=== PATIENT | male | born 1940 | race Caucasian/White ===

== ENCOUNTER 2016-11-10 23:43 | Inpatient (IN) | payer MEDICARE, BC ==
[~2016-11-10] VITALS: Ht 180.3 cm; Wt 106.0 kg
--- NOTE | ~2016-11-10 | EKG ---
PATIENT: SWETA LOFTON UNIT #: [id number] Ventricular Rate: 81 BPM Atrial Rate: 81 BPM P-R Interval: 150 ms QRS Duration: 76 ms Q-T Interval: 360 ms QTC Calculation(Bezet): 418 ms P [place]: 48 degrees Calculated R [place]: -20 degrees Calculated T [place]: -14 degrees Diagnosis Line: Normal sinus rhythm Diagnosis Line: T wave abnormality, consider anterior ischemia Diagnosis Line: When compared with ECG of 12-NOV-2016 10:59, Diagnosis Line: t wave abnormality is less pronounced Diagnosis Line: QT has shortened Diagnosis Line: Confirmed by RICKY LUI MD ([id number]) on 11/14/2016 Diagnosis Line: 7:54:26 PM INTERPRETING MD: HU PINON
--- NOTE | ~2016-11-10 | US84 ---
[id number] [facility] [address] [place], [place] [address] [id number] I MR#: [id number] Acc #: [id number] NAME: SWETA LOFTON : 1940 SEX: M STUDY DATE/TIME: 11/12/2016 15:45 UNIT: C5B ROOM: [facility] STUDY DESCRIPTION: US LE Veins Complete Hugh Stdy Attending Physician: Yung Kearns M.D. Ordering Physician: Ashvin Rodriges M.D. Primary Care Physician: Primary Care Physician No MEDICAL IMAGING REPORT This report is preliminary unless electronic signature is present EXAM Bilateral lower extremity venous ultrasound HISTORY Bilateral lower extremity pain for 2 days. Pulmonary emboli. TECHNIQUE Venous ultrasound examination of both lower extremities was performed using grayscale, spectral Doppler and color flow Doppler imaging. FINDINGS The examination is negative. There is no evidence of deep venous thrombus from the groin to the lower calf bilaterally. Visualized greater saphenous veins are also patent. IMPRESSION Negative examination. No evidence of lower extremity deep venous thrombosis. Dictated by... Lalo Dill M.D. THIS IS AN ELECTRONICALLY VERIFIED REPORT Lalo Dill M.D. at 11/13/2016 11:30 PM DFL/rnr TD: 11/13/2016 01:06 JOB #: [id number] MEDICAL IMAGING REPORT Page 1 of 1 COPY
--- NOTE | ~2016-11-10 | CO ---
Unit #: [id number] #: [id number] Patient: SWETA LOFTON [id number] [address] [address] [id number] I MR#: [id number] NAME: SWETA LOFTON ROOM: CICCU3 Age: 76 Sex: M Admission Date: 11/11/2016 : 1940 Attending Physician: Yung Kearns Primary Care Physician: Theresa Primary Care Physician Consultation Date: 11/11/2016 CONSULTATION REPORT REASON FOR CONSULT ICU management. CHIEF COMPLAINT Shortness of breath. HISTORY OF PRESENT ILLNESS This is a 76-year-old male with no past medical history, but he has not seen a doctor in so many years and takes only baby aspirin at home. The patient presented to the emergency room with shortness of breath and chest discomfort with no radiation. His chest pain was worse on lying flat and on inspiration. The patient stated that he had hernia repair surgery at [facility] on October 25, 2016, and since then, he became short of breath and with some chest discomfort. 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 REVIEW OF SYSTEMS Twelve-point review of systems was obtained and was negative except for what was mentioned in the HPI. PAST MEDICAL HISTORY Acute pulmonary embolus. PAST SURGICAL HISTORY Hernia repair. SOCIAL HISTORY The patient does not smoke. No history of alcohol or drug abuse. ALLERGIES No known drug allergies. FAMILY HISTORY Noncontributory. HOME MEDICATIONS Baby aspirin. PHYSICAL EXAMINATION GENERAL: The patient is not in acute distress. Unit #: [id number] #: [id number] Patient: SWETA LOFTON VITAL SIGNS: Temperature 98.1, respiratory rate 18, O2 saturation 98% on 2 liters nasal cannula. HEENT: Atraumatic, normocephalic. PERRLA, EOMI. NECK: Supple. No JVD. No lymphadenopathy. CHEST: Clear to auscultation bilaterally. HEART: S1, S2. No murmur, gallops or rubs. ABDOMEN: Soft, nontender. Bowel sounds positive. No hepatosplenomegaly. EXTREMITIES: Trace edema but no cyanosis. SKIN: No rashes. CLEANING STAFF SUPERVISOR: Awake, alert, oriented x3. No focal motor/sensory deficits. LABS AND OTHER TESTS LABS: Creatinine 1.4, sodium 139, calcium 9.2. White blood count 10.3, hemoglobin 15.5. IMAGING TESTS: CT angiogram is consistent with extensive bilateral pulmonary embolus. ASSESSMENT 1. Submassive acute pulmonary embolus. 2. Right heart strain. 3. Acute kidney injury. PLAN 1. Patient will be taken to the canvas shop laborer for direct thrombolytic treatment via EKOS. 2. Heparin drip and then he will be transitioned to oral anticoagulation. 3. Case management to foy the new generation of oral anticoagulation. 4. Bedrest for the next 12 hours. 5. Pain management. 6. Gentle IV hydration. Dictated by... Juancarlos Zaman TD: 11/11/2016 15:06 JOB #: [id number] CONSULTATION REPORT Page 1 of 1 X JEISON HAIR MD X CONSULTATION REPORT
--- NOTE | ~2016-11-10 | CT16 ---
[facility] A Service of [facility] RADIOLOGY TEXT RESULTS PATIENT: SWETA LOFTON LOCATION: CIC3 CICCU3-17 : 41 UNIT #: [id number] AGE: [address]: FANI GRACIA V SEX: M ORDER DR: [id number] [facility] [address] [place], [place] [address] [id number] I MR#: [id number] Acc #: [id number] NAME: SWETA LOFTON : 1940 SEX: M STUDY DATE/TIME: 11/11/2016 2:24 UNIT: [facility] ROOM: 297[address] STUDY DESCRIPTION: CT Angio Chest for PE Attending Physician: Fani Gracia Ordering Physician: Quinton Joe D.O. Primary Care Physician: No Primary Care Physician MEDICAL IMAGING REPORT This report is preliminary unless electronic signature is present EXAM CTA chest PE protocol INDICATION Shortness of air and tachycardia for the past 3 days. PROCEDURE Contrast-enhanced CTA of the chest attention on opacification of the pulmonary arteries. Coronal 3D MIP sagittal reformatted images were reconstructed and submitted. This CT exam was performed with one or more of the following radiation dose reduction techniques: Automatic exposure control, adjustment of mA and/or kV according to patient size, and iterative reconstruction. COMPARISON None. FINDINGS Extensive bilateral acute pulmonary embolus. There is no saddle component. There is flattening of the intraventricular septum, suggesting some right heart strain. Ascending thoracic aorta measures up to 4.3 cm. No evidence for dissection, though the aortic is not well opacified on this study. No adenopathy. No acute findings in the included upper abdomen. There is a linear but somewhat wedge-shaped opacity in the anterior left upper lobe. There is atelectasis in both lung bases. No aggressive appearing bone lesion. IMPRESSION 1. Extensive bilateral acute pulmonary embolus with evidence for right heart strain. There is no saddle component. 2. 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 3. Linear but somewhat wedge-shaped opacity in anterior left upper lobe, probably atelectasis. Hemorrhage is considered much less likely. [facility] A Service of [facility] RADIOLOGY TEXT RESULTS PATIENT: SWETA LOFTON LOCATION: [facility]-17 : 41 UNIT #: [id number] AGE: [address]: BASILFANI V SEX: M ORDER DR: Dictated by... Yaya Guan M.D. THIS IS AN ELECTRONICALLY VERIFIED REPORT Yaya Guan M.D. at 11/11/2016 10:01 PM ENMANUEL/rodolfo TD: 11/11/2016 10:10 JOB #: [id number] MEDICAL IMAGING REPORT Page 1 of 1 COPY
--- NOTE | ~2016-11-10 | EKG ---
PATIENT: SWETA LOFTON UNIT #: [id number] Ventricular Rate: 112 BPM Atrial Rate: 112 BPM P-R Interval: 136 ms QRS Duration: 86 ms Q-T Interval: 320 ms QTC Calculation(Bezet): 436 ms P [place]: 27 degrees Calculated R [place]: -13 degrees Calculated T [place]: 8 degrees Diagnosis Line: Sinus tachycardia Diagnosis Line: Nonspecific ST and T wave abnormality Diagnosis Line: Abnormal ECG Diagnosis Line: No previous ECGs available Diagnosis Line: Confirmed by JERZY AMIN MD ([id number]) on Diagnosis Line: 11/11/2016 12:21:32 PM INTERPRETING MD: WING
--- NOTE | ~2016-11-10 | CR72 ---
[facility] A Service of [facility] RADIOLOGY TEXT RESULTS PATIENT: SWETA LOFTON LOCATION: CIC3 CIC : 41 UNIT #: [id number] AGE: [address]: FANI KEARNS V SEX: M ORDER DR: [id number] [facility] [address] [place], [place] [address] [id number] I MR#: [id number] Acc #: [id number] NAME: SWETA LOFTON : 1940 SEX: M STUDY DATE/TIME: 11/11/2016 0:09 UNIT: CEDOF ROOM: 70701 STUDY DESCRIPTION: CR Chest Single View Portable Attending Physician: Fani Kearns Ordering Physician: Ed Doctor [id number] [facility] Primary Care Physician: Primary Care Physician No MEDICAL IMAGING REPORT This report is preliminary unless electronic signature is present EXAM Portable chest INDICATION Shortness of air and cough for the past 2 days. PROCEDURE Frontal view chest. COMPARISON None FINDINGS Mild cardiomegaly. Nodular density in the left mid lung measuring approximately 2.8 cm. Otherwise the lungs are predominately clear with no pleural fluid or pneumothorax. IMPRESSION 1. Cardiomegaly. 2. Nonspecific nodular density left mid lung. This would be better evaluated with chest CT. Dictated by... Yaya Guan M.D. THIS IS AN ELECTRONICALLY VERIFIED REPORT Yaya Guan M.D. at 11/11/2016 10:02 PM ENMANUEL/jacinda TD: 11/11/2016 09:42 JOB #: [id number] MEDICAL IMAGING REPORT [facility] A Service of [facility] RADIOLOGY TEXT RESULTS PATIENT: SWETA LOFTON LOCATION: CIC CIC : 41 UNIT #: [id number] AGE: [address]: FANI KEARNS V SEX: M ORDER DR: Page 1 of 1 COPY
--- NOTE | ~2016-11-10 | DS ---
Unit #: [id number] #: [id number] Patient: SWETA LOFTON [id number] [address] [address] [id number] I MR#: [id number] NAME: SWETA LOFTON ROOM: 550 Age: 76 Sex: M Admission Date: 11/11/2016 : 1940 Discharge Date: 11/14/2016 Attending Physician: Yung Kearns M.D. Primary Care Physician: No Primary Care Physician DISCHARGE SUMMARY PERTINENT HISTORY AND HOSPITAL COURSE The patient is a 76-year-old man with no prior medical history other than a left inguinal hernia repair done laparoscopically on 10/25/2016. After he went home, he mostly sat up in the recliner, did not ambulate much and subsequently about a month later he developed symptoms of shortness of breath. On arrival to the emergency room, he was noted to be hypoxic. CAT scan, CT angiogram of the chest demonstrated extensive bilateral pulmonary embolism with evidence of right heart strain. The patient underwent EKOS and then continued on anticoagulation with Eliquis. At discharge, the patient is currently breathing comfortably, no respiratory distress. Lungs clear to auscultation bilaterally. Heart sounds regular rate and rhythm, no murmur. CONSULTATIONS Cardiology consultation. PROCEDURES EKOS. DISCHARGE MEDICATIONS 1. Eliquis 5 mg, take 10 mg p.o. twice daily for seven days. Then, on 11/19/2016, take 5 mg p.o. twice daily. 2. Aspirin 81 mg p.o. once daily. DISCHARGE INSTRUCTIONS The patient is to follow up with primary care physician. Follow up with cardiology consultation as outpatient. Dictated by... Juancarlos Hayes/shanika TD: 11/14/2016 12:15 JOB #: [id number] Unit #: [id number] #: [id number] Patient: SWETA LOFTON DISCHARGE SUMMARY Page 1 of 1 X X DISCHARGE SUMMARY
--- NOTE | ~2016-11-10 | HP ---
Unit #: [id number] #: [id number] Patient: SWETA LOFTON [id number] [facility]. [place], [place] [address] [id number] I MR#: [id number] NAME: SWETA LOFTON ROOM: 95298 Age: 76 Sex: M Admission Date: 11/10/2016 : 1940 Attending Physician: Yung Kearns Primary Care Physician: No Primary Care Physician HISTORY AND PHYSICAL HISTORY OF PRESENT ILLNESS The patient is a 76-year-old man with recent history of hernia surgery about a month ago. Following surgery, the patient has not been active. States he has primarily been sitting in a chair. The patient does not have a primary care physician. He has not seen a physician for many years. He is not on any medications. He presents to the emergency room with symptoms of sudden onset of shortness of breath and chest discomfort, worse when lying down, described as sharp, moderate in intensity, continuous in timing. SOCIAL HISTORY Does not smoke. ALLERGIES No known drug allergies. FAMILY HISTORY Noncontributory. MEDICATIONS Does not take any medications. PHYSICAL EXAMINATION VITALS: Temperature 97, heart rate 93, respirations 27, O2 sat 95% on 2 liters nasal cannula, blood pressure 124/89. GENERAL: Elderly man, looks fatigued. HEENT: Normocephalic, atraumatic. NECK: Supple. No palpable masses. CVS: S1, S2. Regular rate and rhythm. LUNGS: Bilateral air entry. No wheeze. ABDOMEN: Soft. Bowel sounds positive. EXTREMITIES: No edema. No cyanosis. FIELD MARKETING REPRESENTATIVE: Awake, alert, oriented. No acute focal deficits. DIAGNOSTIC STUDIES IMAGING: CAT scan demonstrates bilateral pulmonary embolism and right heart strain. ASSESSMENT AND PLAN Bilateral pulmonary embolism: Plan is to order IV anticoagulation with heparin drip along with plan for EKOS. Supplemental oxygen to maintain O2 sats above 90%. Unit #: [id number] #: [id number] Patient: SWETA LOFTON Dictated by Nino Florentino M.D. RAMIN/ayush TD: 11/11/2016 10:59 JOB #: [id number] HISTORY AND PHYSICAL Page 1 of 1 X Nino Florentino MD HISTORY AND PHYSICAL
--- NOTE | ~2016-11-10 | EKG ---
PATIENT: SWETA LOFTON UNIT #: [id number] Ventricular Rate: 84 BPM Atrial Rate: 84 BPM P-R Interval: 142 ms QRS Duration: 90 ms Q-T Interval: 440 ms QTC Calculation(Bezet): 519 ms P [place]: 42 degrees Calculated R [place]: 8 degrees Calculated T [place]: 17 degrees Diagnosis Line: Normal sinus rhythm Diagnosis Line: T wave abnormality, consider anterior ischemia Diagnosis Line: Prolonged QT Diagnosis Line: Abnormal ECG Diagnosis Line: When compared with ECG of 10-NOV-2016 23:50, Diagnosis Line: ST no longer depressed in Lateral leads Diagnosis Line: T wave inversion now evident in Anterior leads Diagnosis Line: Confirmed by RICKY LUI MD ([id number]) on 11/12/2016 Diagnosis Line: 7:26:44 PM INTERPRETING MD: HU PINON
--- NOTE | ~2016-11-10 | CO ---
Unit #: [id number] #: [id number] Patient: SWETA LOFTON [id number] [address] [address] [id number] I MR#: [id number] NAME: SWETA LOFTON ROOM: CICCU3 Age: 76 Sex: M Admission Date: 11/11/2016 : 1940 Attending Physician: Yung Kearns Primary Care Physician: Primary Care Physician No CONSULTATION REPORT REASON FOR CONSULTATION Pulmonary embolism. HISTORY OF PRESENT ILLNESS This is a 76-year-old white male, who was admitted with a complaint of shortness of breath. He had left inguinal hernia repair done laparoscopically at [facility] on 10/25/2016. After he went home he mostly sat up in a recliner. Three days ago, he developed shortness of breath at rest and on exertion. He had no chest pain. No cough or fever. His dyspnea worsened and prompt him to come to the emergency room for evaluation. CTA of the chest revealed extensive bilateral pulmonary embolism with evidence of right heart strain. From a cardiac standpoint, the patient has a history of hypertension. He denies any history of coronary artery disease, diabetes, CVA, or TIA. No hemoptysis, hematochezia, or melena. He was started on heparin in the emergency room. PAST MEDICAL HISTORY 1. Hypertension. 2. Nonsmoker. PAST SURGICAL HISTORY 1. Prior hernia repair. 2. Recent laparoscopic inguinal hernia repair on 10/25/2016. SOCIAL HISTORY The patient lives at home alone. He is usually reasonably active. He has never smoked. No illicit drug or alcohol use. FAMILY HISTORY Noncontributory. ALLERGIES No known drug allergies. HOME MEDICATIONS Not currently reconciled. PHYSICAL EXAMINATION VITAL SIGNS: Blood pressure 134/88, heart rate 88, temperature 97.7. BMI of 30. GENERAL: This is a very pleasant, obese 76-year-old white male, who is in no acute respiratory distress. Unit #: [id number] #: [id number] Patient: SWETA LOFTON NEUROLOGIC: He is awake, alert, and oriented. There are no focal weaknesses. NECK: Trachea is midline. No thyromegaly or lymphadenopathy. No jugular venous distention. HEART: S1, S2. Heart sounds are normal. No murmurs. No rubs or clicks. Regular rate and rhythm. LUNGS: Clear without rales, rhonchi, or wheezes. ABDOMEN: Soft and nontender with bowel sounds are present. EXTREMITIES: Without leg edema. SKIN: Warm and dry. There was a small 3 cm incision to the mid lower abdominal that is intact. DIAGNOSTIC STUDIES LABORATORY RESULTS: Glucose 137, BUN 26, creatinine 1.4, sodium 139, potassium 4.6. BNP 272. Troponin 0.09 x2. White count 10.3, hemoglobin 16.5, hematocrit 49.8, and platelet count is 210. IMAGING STUDIES: Chest x-ray shows nodular density in the mid left lung measuring 2.8 cm. Cardiomegaly. The nodular density is nonspecific. CTA of the chest reveals extensive bilateral acute pulmonary embolism with evidence of right heart strain. Aneurysmal dilatation of the thoracic up to 4.2 cm. Left anterior upper lobe with atelectasis. CARDIOVASCULAR STUDIES: EKG shows sinus tachycardia with a rate of 112 beats per minute with nonspecific ST-wave abnormality. IMPRESSION 1. Bilateral extensive pulmonary embolism. 2. Recent left inguinal hernia repair. 3. Incidental finding of the ascending thoracic aneurysmal dilatation up to 4.2 cm. 4. Elevated troponin secondary to pulmonary embolism. 5. Hypertension. PLAN 1. Cardiology was consulted for bilateral pulmonary embolism. I agree with heparin drip. 2. The patient has been advised to undergo directed thrombolytic therapy for PE by EKOS. Procedure risks and benefits have been explained to the patient and his son and they are agreeable. I will review risk factors if none, we will proceed. Thank you for allowing us to assist with this patient's care. Dictated by... Fanny DengRTeresa. for Juancarlos Handley/alex TD: 11/12/2016 07:50 JOB #: [id number] Unit #: [id number] #: [id number] Patient: SWETA LOFTON CONSULTATION REPORT Page 1 of 1 X Luis Alfredo Kaye APRN X CONSULTATION REPORT
[2016-11-11 00:49] LABS: POC - CKMB 5.7 ng/mL (0.0-7.9); POC - TROPONIN 0.09 ng/mL (<=0.05)
[2016-11-11 01:02] LABS: BASOPHIL% 0.2 % (0-2.5); EOSINOPHIL# 0.1 X10e3 (0-0.7); EOSINOPHIL% 0.9 % (0.0-7.0); HEMATOCRIT 49.8 % (38.0-50.0); HEMOGLOBIN 16.5 gm/dL (13.0-16.0); LYMPHOCYTE# 1.3 X10e3 (1.0-3.5); LYMPHOCYTE% 13.1 % (17.0-45.0); MEAN CELL VOLUME 90.2 FL (83-96); MEAN CORPUSCULAR HEMOGLOBIN 29.9 PG (28-34); MEAN CORPUSCULAR HGB CONC 33.2 g/dL (30-36); MONOCYTE# 1.1 X10e3 (0-1.0); MONOCYTE% 10.5 % (3.0-12.0); NEUTROPHIL# 7.7 X10e3 (1.5-7.1); NEUTROPHIL% 75.3 % (40-75); PLATELET COUNT 210 X10e3 (140-420); RED BLOOD COUNT 5.52 X10e (3.90-5.60); RED CELL DISTRIBUTION WIDTH 13.9 % (11.0-15.5); WHITE BLOOD COUNT 10.3 X10e3 (4.0-10.5)
[2016-11-11 01:07] LABS: DIFF IND NO
[2016-11-11 01:18] LABS: PARTIAL THROMBOPLASTIN TIME 29.2 SECONDS (23.5-31.3); PROTHROMBIN TIME (PATIENT) 11.2 SECONDS (10.0-11.7)
[2016-11-11 01:30] LABS: ALBUMIN SERUM 4.2 g/dL (3.5-5.0); BILIRUBIN, DIRECT 0.1 mg/dL (0.0-0.2); BILIRUBIN,INDIRECT 0.7 mg/dL (0.0-0.9); BILIRUBIN,TOTAL 0.8 mg/dL (0.2-2.0); BUN/CREATININE RATIO 16.42; CALCIUM SERUM 9.2 mg/dL (8.4-10.2); CREATININE SERUM 1.4 mg/dL (0.6-1.4); GLOM FILT RATE Estimated 48.8 mL/min (>60); POTASSIUM 4.6 mmol/L (3.5-5.1); PROTEIN TOTAL SERUM 7.7 g/dL (6.0-8.3)
[2016-11-11 02:16] LABS: POC - TROPONIN 0.09 ng/mL (<=0.05)
[2016-11-11] MEDS ORDERED: PATIENT'S PHARMACY (09:58)
[2016-11-11] MEDS ORDERED: NO MEDICATIONS (09:58)
[2016-11-12 05:25] LABS: BASOPHIL% 0.5 % (0-2.5); EOSINOPHIL# 0.1 X10e3 (0-0.7); EOSINOPHIL% 1.7 % (0.0-7.0); HEMATOCRIT 40.1 % (38.0-50.0); LYMPHOCYTE% 15.9 % (17.0-45.0); MEAN CELL VOLUME 90.7 FL (83-96); MEAN CORPUSCULAR HEMOGLOBIN 29.4 PG (28-34); MEAN CORPUSCULAR HGB CONC 32.4 g/dL (30-36); MONOCYTE% 14.7 % (3.0-12.0); NEUTROPHIL# 4.4 X10e3 (1.5-7.1); NEUTROPHIL% 67.2 % (40-75); PLATELET COUNT 158 X10e3 (140-420); RED BLOOD COUNT 4.42 X10e (3.90-5.60); RED CELL DISTRIBUTION WIDTH 13.8 % (11.0-15.5); WHITE BLOOD COUNT 6.5 X10e3 (4.0-10.5)
[2016-11-12 05:44] LABS: DIFF IND NO
[2016-11-12 06:16] LABS: BILIRUBIN,TOTAL 1.1 mg/dL (0.2-2.0); BUN/CREATININE RATIO 17.5; CALCIUM SERUM 8.2 mg/dL (8.4-10.2); CREATININE SERUM 1.2 mg/dL (0.6-1.4); GLOM FILT RATE Estimated 58.8 mL/min (>60); POTASSIUM 4.9 mmol/L (3.5-5.1); PROTEIN TOTAL SERUM 5.6 g/dL (6.0-8.3)
[2016-11-13 09:20] LABS: BASOPHIL% 0.4 % (0-2.5); EOSINOPHIL# 0.2 X10e3 (0-0.7); EOSINOPHIL% 2.5 % (0.0-7.0); HEMATOCRIT 41.1 % (38.0-50.0); HEMOGLOBIN 13.5 gm/dL (13.0-16.0); LYMPHOCYTE# 0.7 X10e3 (1.0-3.5); LYMPHOCYTE% 11.1 % (17.0-45.0); MEAN CORPUSCULAR HEMOGLOBIN 29.8 PG (28-34); MEAN CORPUSCULAR HGB CONC 32.7 g/dL (30-36); MEAN PLATELET VOLUME 8.1 FL (6.5-11.5); MONOCYTE# 0.7 X10e3 (0-1.0); MONOCYTE% 11.2 % (3.0-12.0); NEUTROPHIL% 74.8 % (40-75); PLATELET COUNT 167 X10e3 (140-420); RED BLOOD COUNT 4.52 X10e (3.90-5.60); RED CELL DISTRIBUTION WIDTH 13.5 % (11.0-15.5); WHITE BLOOD COUNT 6.7 X10e3 (4.0-10.5)
[2016-11-13 09:22] LABS: DIFF IND NO
[2016-11-13 09:53] LABS: CALCIUM SERUM 8.4 mg/dL (8.4-10.2); GLOM FILT RATE Estimated 73.3 mL/min (>60); POTASSIUM 4.2 mmol/L (3.5-5.1)
[2016-11-13 10:31] LABS: CK TOTAL 59 IU/L (36-174)
[2016-11-13 11:34] LABS: ARTERIAL BLD GAS O2 SATURATION 94.7 % (90.0-100.0); ARTERIAL BLOOD GAS CARBOXY HB 0.5 %sat (0.0-9.0); ARTERIAL BLOOD GAS HCO3 23.1 mmol/L; ARTERIAL BLOOD GAS MET HB 0.8 %sat (0.0-2.0); ARTERIAL BLOOD GAS PCO2 33.8 mmHg (35.0-45.0); ARTERIAL BLOOD GAS pH 7.443 (7.350-7.450)
[2016-11-13 11:35] LABS: THYROID STIMULATING HORMONE 5.16 uIU/ml (0.34-5.60)
[2016-11-13 11:35] LABS: ARTERIAL BLOOD GAS ALLEN TEST NORMAL; ARTERIAL BLOOD GAS ART SITE RIGHT RADIAL; ARTERIAL BLOOD GAS DELIVERY OXIMIZER; ARTERIAL BLOOD GAS PO2 75.2 mmHg (80.0-100); ARTERIAL DRAW? YES
[2016-11-13 11:42] LABS: FREE THYROXIN (T4) 0.92 ng/dL (0.58-1.64)
[2016-11-14 11:53] LABS: CHOLESTEROL 201 mg/dL (0-200); HDL CHOLESTEROL 32 mg/dL (29-75); LDL/HDL RATIO 5 RATIO (0-4); TRIGLYCERIDES 111 mg/dL (10-160)
[2016-11-14 11:58] LABS: LDL CHOLESTEROL 147 mg/dL ([, -130])
[2016-11-14] MEDS ORDERED: ELIQUIS5 MG PO ×3 (12:31→13:59)
[2016-11-14] MEDS ORDERED: ASPIRIN81 M2 PO (12:34)
== END 2016-11-14 14:24 | disposition home or self-care (01) | DRG 175 ==
LOC: CED 23:43 → C5B 11-11 03:11 → CEDOF 11-11 03:11 → CED 11-11 04:34 → CEDOF 11-11 04:34 → CICCU3 11-11 12:35 → C5B 11-12 18:00
PROVIDERS: Emergency Medicine; Internal Medicine; Internal Medicine Cardiovascular Disease
PROC: 3E03317 Introduction of Other Thrombolytic into Peripheral Vein, Percutaneous Approach (ICD-10-PCS; principal; 2016-11-11)
PROC: B24BZZZ Ultrasonography of Heart with Aorta (ICD-10-PCS; 2016-11-11)
PROC: B32TYZZ Computerized Tomography (CT Scan) of Left Pulmonary Artery using Other Contrast (ICD-10-PCS; 2016-11-11)
PROC: B32SYZZ Computerized Tomography (CT Scan) of Right Pulmonary Artery using Other Contrast (ICD-10-PCS; 2016-11-11)
DX: I26.99 Other pulmonary embolism without acute cor pulmonale (principal); J96.01 Acute respiratory failure with hypoxia; N17.9 Acute kidney failure, unspecified; I51.9 Heart disease, unspecified; I10 Essential (primary) hypertension; I27.2 Other secondary pulmonary hypertension; I71.2 Thoracic aortic aneurysm, without rupture
CPT/HCPCS: 36415; 36600; 71010; 71275; 80048; 80053; 80061; 80076; 82140; 82550; 82553; 82803; 83880; 84439; 84443; 84484; 85025; 85610; 85730; 90732; 93005; 93306; 93970; 94760; 94761; 96374; 99285; C1751; C1769; C1887; G0009; J1644; J2250; J2270; J2997; J3010; Q9967